=== PATIENT | male | born 1950 | race Caucasian/White ===

== ENCOUNTER 2021-01-26 12:11 | Emergency (ER) | payer OTHER ==
[~2021-01-26] VITALS: Ht 184.2 cm; Wt 97.7 kg
[2021-01-26 12:16] VITALS: BP 123/77
[2021-01-26] MEDS ORDERED: PROPOFOL 10 MG/ML, 20ML ONE ×2 (12:45→13:17)
[2021-01-26] MEDS ORDERED: PLEASE ENTER ALLERGIES MC SCH (13:00)
[2021-01-26] MEDS ORDERED: PROPOFOL 10 MG/ML, 20ML IVPush ONE ×2 (13:00→13:30)
--- NOTE | 2021-01-26 14:10 | NUR ---
This RN assumed care at 1410.
--- NOTE | 2021-01-26 14:28 | NUR ---
Pt ambulatory to bathroom with steady gait. Returned to room and RA sat was 93%.
== END 2021-01-26 14:43 | disposition home or self-care (01) ==
LOC: ED 14:30
DX: S73.014A Posterior dislocation of right hip, initial encounter (principal); X58.XXXA Exposure to other specified factors, initial encounter; Y93.89 Activity, other specified; Y92.009 Unspecified place in unspecified non-institutional (private) residence as the place of occurrence of the external cause; Y99.8 Other external cause status
CPT/HCPCS: 27265; 73501; 73502; 99285; J2704